=== PATIENT | male | born 2000 | race African-American/Black ===

== ENCOUNTER 2022-12-22 21:19 | Emergency (ER) | payer SELFPAY ==
[~2022-12-22] VITALS: Ht 182.9 cm; Wt 82.0 kg
[2022-12-22 21:39] VITALS: TEMP 98.7; O2SAT 99
[2022-12-22] MEDS ORDERED: HYDROCODONE/ACETAMINOPHEN 5/325MG TABLET PO ONE (22:30)
[2022-12-22 23:40] VITALS: BP 143/92; PULSE 87; RESP 15
[2022-12-22] MEDS ORDERED: T3 PO (23:48)
[2022-12-22] MEDS ORDERED: IBUP-2029 MT (23:48)
== END 2022-12-23 00:09 | disposition home or self-care (01) ==
LOC: ER 21:19
DX: S62.002A Unspecified fracture of navicular [scaphoid] bone of left wrist, initial encounter for closed fracture (principal); F41.9 Anxiety disorder, unspecified; W01.0XXA Fall on same level from slipping, tripping and stumbling without subsequent striking against object, initial encounter; Y93.89 Activity, other specified; Y92.89 Other specified places as the place of occurrence of the external cause; Y99.8 Other external cause status
CPT/HCPCS: 29125; 73110; 99283